=== PATIENT | male | born 1990 | race Caucasian/White ===

== ENCOUNTER 2016-06-01 16:54 | Emergency (ER) ==
[2016-06-01 17:38] VITALS: BP 130/81
--- NOTE | 2016-06-01 18:28 | PROVIDER DOCUMENTATION ---
HPI-EENT General - General Chief Complaint: Cold Symptoms Stated Complaint: SORET THROAT Time Seen by Provider: 06/01/16 18:21 Source: patient Allergies/Adverse Reactions: Patient Allergies Allergy/AdvReac Type Severity Reaction Status Date / Time Penicillins Allergy Unknown Verified 06/01/16 17:38 Home Medications: Home Medication List Medication Instructions Recorded Confirmed Last Taken Type Lisdexamfetamine Dimesylate 30 mg PO QAM 11/16/14 03/20/15 01/24/15 History [Vyvanse] Atomoxetine [Strattera] 40 mg PO QHS 01/24/15 03/20/15 01/24/15 History Indomethacin 50 mg PO TID #30 capsule 01/24/15 03/20/15 Unknown Rx Quetiapine Fumarate [Seroquel] 150 mg PO HS 01/24/15 03/20/15 01/24/15 History Ibuprofen 800 mg PO Q8H PRN PRN #30 tablet 03/20/15 Unknown Rx Clindamycin [Cleocin] 150 mg PO Q6HR #30 capsule 06/01/16 Unknown Rx Diphenhyramine/Al&mg Oh/Lido [Mbx 15 ml MT Q4-6H PRN PRN #1 bottle 06/01/16 Unknown Rx Solution] Prednisone 20 mg PO DAILY #6 tablet 06/01/16 Unknown Rx - History of Present Illness-EENT General Nature of Presenting Problem: This pt presents today c complaints of sore throat, body aches and subjective fever X 3 days. He reports that his mother and his children were diagnosed c strep throat a few days ago and he is now having similar symptoms. Denies any n/ v/d or respiratory distress. No other issues or complaints. EENT Location: reports: throat Quality of Pain: reports: aching Severity: reports: mild Onset/Duration: reports: 3 days ago Timing: reports: still present Prearrival Treatment: Initiated no prearrival treatment Associated Symptoms: reports: fever, sore throat Similar Symptoms Previously?: No Recently seen or treated by another doctor?: No Review of Systems - Adult - REVIEW OF SYSTEMS - ADULT Constitutional: reports: chills, fever, fatique. denies: night sweats, weight gain Eyes: reports: no symptoms reported. denies: discharge, dry eyes Ears, Nose, Mouth & Throat: reports: throat pain. denies: ear discharge, ear pain Cardiovascular: reports: no symptoms reported. denies: chest pain, edema Respiratory: reports: no symptoms reported. denies: chronic cough, cough Gastrointestinal: reports: poor appetite. denies: abdominal pain, hematemesis Genitourinary: reports: no symptoms reported. denies: dysuria, discharge Musculoskeletal: reports: muscle aches. denies: bone pain, back pain Integumentary: reports: no symptoms reported. denies: hives, hair loss Neurological: reports: no symptoms reported. denies: ataxia, dizziness/vertigo Psychiatric: reports: no symptoms reported. denies: anxiety, anti-depressant use Endocrine: reports: no symptoms reported Hematologic/Lymphatic: reports: no symptoms reported Allergic/Immunologic: reports: no symptoms reported All Other Systems: Reviewed and Negative Past History - Adult - PAST MEDICAL HISTORY-ADULT Review of Records: reports: Old Records Reviewed, Nursing Assessment Review, Medications Reviewed, Social history reviewed & non-contributory. Major Childhood Illnesses: reports: denies history Cardiovascular: reports: cardiac disease (cardiac disorder), other (enlarged heart) Respiratory: reports: denies history Gastrointestinal: reports: denies history Obstetrical/Gynecological: reports: denies history Genitourinary: reports: denies history Musculoskeletal: reports: denies history Neurological: reports: denies history Endocrine/Immune: reports: denies history Other Conditions: reports: denies history - PRIOR SURGERIES/PROCEDURES Surgical/Procedure History: reports: orthopedic (extremity) (knee surgery) - IMMUNIZATION STATUS Childhood Immunizations: See Nurse Assessment Flu Vaccine: See Nurse Assessment - FAMILY HISTORY Family History: reviewed, not pertinent - SOCIAL HISTORY Smoking: cigarettes, less than 1 pack/day Provider spent 3-5 mins advising pt. on dangers of tobacco.: Discussed manners to quit use, and f/u contacts for add'l counseling. Physical Exam- EENT - Physical Exam EENT Initial Vital Signs Reviewed: Yes General Appearance: alert, no apparent distress Eye Exam: bilateral eye: normal inspection, PERRL, EOMI Ear Exam: bilateral ear: auricle normal, canal normal, TM normal Nasal Exam: normal inspection Throat Exam: normal mouth inspection, pharynx tenderness (erythema). negative: excessive drooling, mandibular swelling, maxillary swelling, uvula swelling, voice changes Neck: non-tender, full range of motion, supple, normal inspection. negative: limited range of motion, lymphadenopathy, meningismus Respiratory: chest non-tender, lungs clear, no pleuratic chest pain, no respiratory distress, no accessory muscle use Cardiovascular: normal peripheral pulses, regular rate, rhythm Abdominal Exam: normal bowel sounds, non tender, soft Back Exam: normal inspection, no CVA tenderness, no vertebral tenderness Extremity: normal range of motion, non-tender, normal gait, normal inspection Integumentary: normal color, normal turgor, warm/dry Neurologic: grossly normal, no motor/sensory deficits Psych/Mental Status: normal mood/affect, normal thought content, normal thought process, oriented x 3 Progress - PLAN OF CARE/RESULTS Progress/Plan/Lab Results: Vital Signs Temp Pulse Resp BP Pulse Ox 06/01/16 17:35 98.3 F 94 H 18 130/81 99 Penicillins Allergy (Verified 06/01/16 17:38) Unknown Lisdexamfetamine Dimesylate [Vyvanse] 30 mg PO QAM 11/16/14 Atomoxetine [Strattera] 40 mg PO QHS 01/24/15 Indomethacin 50 mg PO TID #30 capsule 01/24/15 Quetiapine Fumarate [Seroquel] 150 mg PO HS 01/24/15 Ibuprofen 800 mg PO Q8H PRN PRN #30 tablet 03/20/15 Departure - Departure Time of Disposition Order: 18:27 DIAGNOSIS: Strep pharyngitis Disposition: HOME 01 Certified Medical Emergency: Urgent Condition: Good Additional Instructions: Take medication as prescribed. Alternate tylenol and motrin for fever and pain. Rest and stay well hydrated. ED Follow Up Instructions: You have been treated by a care provider in the Emergency Department. These instructions are being provided to you so you can have an understanding of how to care for yourself upon discharge. Upon discharge from the Emergency Department, you are responsible for making arrangements for follow-up care by a physician of your choice. Take all prescribed medications as directed. Return to the Emergency Department immediately for any new or worsening symptoms. You may call the Physician Referral phone number at [phone] to obtain a list of Physicians who are taking new patients. Prescriptions: Clindamycin [Cleocin] 150 mg PO Q6HR #30 capsule Diphenhyramine/Al&mg Oh/Lido [Mbx Solution] 15 ml MT Q4-6H PRN PRN #1 bottle PRN Reason: Sore throat Prednisone 20 mg PO DAILY #6 tablet Attestation - Physician/ MARILIN Attestation Patient care was provided by Advanced Practice Provider:: Yes Advanced Practice Provider:: Henry Rojas Advanced Practice Provider documentation review:: The Mid-level provider documentation, treatment plan and medical decision making was reviewed by the physician who agrees with all treatment and medical decision making by the MLP.
== END 2016-06-01 19:25 | disposition home or self-care (01) ==
LOC: P.ED 16:54
DX: J02.0 Streptococcal pharyngitis (principal); M79.1 Myalgia; R50.9 Fever, unspecified; R53.83 Other fatigue; F17.210 Nicotine dependence, cigarettes, uncomplicated; Z79.899 Other long term (current) drug therapy; Z71.6 Tobacco abuse counseling
CPT/HCPCS: 99282